=== PATIENT | male | born 1945 | race Caucasian/White ===

== ENCOUNTER 2017-06-04 00:58 | Emergency (ER) | payer MEDICARE ==
[~2017-06-04] VITALS: Ht 177.8 cm; Wt 95.0 kg
[~2017-06-04 00:58] MED LIST: ASPI-650 PO; ATOR10TA9 PO; CARV6.2512 PO; LISI-167 PO; METR500T PO; NYST1000 PO; maalox/diphenh/lido/sucralfate PO
[2017-06-04 03:10] VITALS: BP 144/75
== END 2017-06-04 03:24 | disposition home or self-care (01) ==
LOC: ED 03:16
DX: J44.9 Chronic obstructive pulmonary disease, unspecified (principal); I10 Essential (primary) hypertension; K70.9 Alcoholic liver disease, unspecified
CPT/HCPCS: 71010; 99283

== ENCOUNTER 2017-08-03 13:37 | Emergency (ER) | payer MEDICARE, MEDICAID ==
[~2017-08-03] VITALS: Ht 182.9 cm; Wt 70.9 kg
[~2017-08-03 13:37] MED LIST changes: +DOXY100T PO; +GUAI200T3 PO; +PRED10TA PO
[2017-08-03 18:10] LABS: BASOPHILS % (AUTO) 0 % (0-1); EOSINOPHILS % (AUTO) 2 % (1-7); LYMPHOCYTES % (AUTO) 18 % (22-44); MD NO; MEAN CORPUSCULAR HGB CONC 32.6 g/dL (33.2-36.2); MEAN CORPUSCULAR VOLUME 92.1 fL (81-97); MEAN PLATELET VOLUME 7.2 fL (7.4-10.4); MONOCYTES # (AUTO) 0.14 x10^3/uL (0.2-0.8); MONOCYTES % (AUTO) 1 % (2-9); NEUTROPHILS # (AUTO) 8.75 x10^3/uL (1.8-6.8); NEUTROPHILS % (AUTO) 79 % (42-75); PLATELET COUNT 298 x10^3/uL (130-400); RED BLOOD COUNT 5.47 x10^6/uL (4.38-5.82); RED CELL DISTRIBUTION WIDTH 15.2 % (9.4-14.8)
[2017-08-03 18:19] LABS: CHLORIDE 105 mmol/L (98-107)
[2017-08-03 18:20] LABS: ALANINE AMINOTRANSFERASE 33 U/L (12-78); ALBUMIN 3.1 g/dL (3.4-5.0); ANION GAP 5 mmol/L (5-15); CALCIUM 7.9 mg/dL (8.5-10.1); CREATININE 1.14 mg/dL (0.7-1.3)
[2017-08-03 18:30] LABS: ALKALINE PHOSPHATASE 101 U/L (45-117); BILIRUBIN,TOTAL 0.4 mg/dL (0.2-1.0); FREE T4 (FREE THYROXINE) 0.83 ng/dL (0.76-1.46); TOTAL PROTEIN 6.9 g/dL (6.4-8.2)
[2017-08-03] MEDS ORDERED: ALBUTEROL/IPRATROPIUM 2.5MG/0.5MG, 3 ML NPPB ONE (18:30)
[2017-08-03] MEDS ORDERED: ALBUTEROL/IPRATROPIUM 2.5MG/0.5MG, 3 ML ONE (18:36)
[2017-08-03 19:05] VITALS: BP 141/87
[2017-08-10] MEDS ORDERED: AZIT500T5 PO (14:53)
[2017-08-10] MEDS ORDERED: CEFD300C37 PO (14:53)
== END 2017-08-03 21:03 | disposition home or self-care (01) ==
LOC: ED 18:11
DX: J44.1 Chronic obstructive pulmonary disease with (acute) exacerbation (principal); I10 Essential (primary) hypertension; Z87.891 Personal history of nicotine dependence
CPT/HCPCS: 36415; 71045; 80053; 84439; 84443; 85025; 93005; 94640; 99285; J7512; J7620

== ENCOUNTER 2017-08-04 19:56 | Emergency (ER) | payer MEDICARE, MEDICAID ==
[~2017-08-04] VITALS: Ht 182.9 cm; Wt 76.0 kg
[2017-08-04] MEDS ORDERED: ALBUTEROL SULFATE 2.5 MG/3 ML NPPB ONE (20:30)
[2017-08-04 22:10] LABS: ANION GAP 5 mmol/L (5-15); CALCIUM 8.1 mg/dL (8.5-10.1); CHLORIDE 107 mmol/L (98-107); CREATININE 1.14 mg/dL (0.7-1.3)
[2017-08-05 00:33] VITALS: BP 151/91
== END 2017-08-05 00:36 | disposition home or self-care (01) ==
LOC: ED 21:27
DX: J44.1 Chronic obstructive pulmonary disease with (acute) exacerbation (principal); R09.02 Hypoxemia; I10 Essential (primary) hypertension
CPT/HCPCS: 36415; 80048; 93005; 94640; 99285; J7512; J7613